=== PATIENT | male | born 1995 | race Two or more races ===

== ENCOUNTER 2016-08-14 22:17 | Emergency (ER) | payer MEDICAID, OTHER ==
[~2016-08-14] VITALS: Ht 177.8 cm; Wt 91.6 kg
[2016-08-14 22:36] VITALS: BP 133/83
[2016-08-14] MEDS ORDERED: BACITRACIN-POLYMYXIN B TOPICAL OINT UD TOP ONE (23:30)
== END 2016-08-15 01:06 | disposition home or self-care (01) ==
LOC: ER 22:22
DX: S61.411A Laceration without foreign body of right hand, initial encounter (principal); W25.XXXA Contact with sharp glass, initial encounter; Y93.89 Activity, other specified; Y99.8 Other external cause status; Y92.89 Other specified places as the place of occurrence of the external cause
CPT/HCPCS: 10120; 73120